=== PATIENT | female | born 1985 | race Caucasian/White ===

== ENCOUNTER 2018-08-06 18:37 | Inpatient (IN) ==
[2018-08-06] MEDS ORDERED: Sodium Chlor 0.9% Inj 500 ML IV.SIG PRN (19:33)
[2018-08-06] MEDS ORDERED: Naloxone Inj 0.4 MG/ML Vial IV.PUSH PRN (19:33)
[2018-08-06] MEDS ORDERED: Sod Chloride 0.9% Inj 1,000 ML IV.CONT PRN (19:33)
[2018-08-06] MEDS ORDERED: fentaNYL Citrate Inj 100 MCG/2 ML Ampul IV.PUSH PRN ×2 (19:33)
[2018-08-06] MEDS ORDERED: Oxytocin 30 Units/500ml Premix 30 UNITS/500 ML BAG IV.SIG ONE (19:33)
[2018-08-06] MEDS ORDERED: Citric Acid/Sodium Citrate Liq 30 ML UDC PO SCH (19:45)
[2018-08-06] MEDS ORDERED: Lidocaine 1% Inj 50 ML Vial ONE (19:48)
[2018-08-06 20:37] LABS: Baso % (Auto) 0.3 % (0.0-2.0); Eos # (Auto) 0.1 th/mm3 (0.0-0.4); Eos % (Auto) 1.6 % (0.0-4.0); Hemoglobin 11.9 gm/dL (11.6-15.3); Lymph # (Auto) 1.1 th/mm3 (1.0-4.8); Lymph % (Auto) 14.9 % (9.0-44.0); Mean Corpuscular Hemoglobin 31.4 pg (27.0-34.0); Mean Corpuscular Volume 89.8 fL (80.0-100.0); Mean Platelet Volume 10.1 fL (7.0-11.0); Mono # (Auto) 0.7 th/mm3 (0.0-0.9); Mono % (Auto) 9.2 % (0.0-8.0); Neut # (Auto) 5.5 th/mm3 (1.8-7.7); Platelet Count 201 th/mm3 (150-450); Red Blood Count 3.79 mil/mm3 (4.00-5.30); Red Cell Distribution Width 14.8 % (11.6-17.2); White Blood Count 7.4 th/mm3 (4.0-11.0)
[2018-08-06 20:48] LABS: Bilirubin,Urine Negative (Negative); Clarity,Urine Hazy (Clear); Color,Urine Yellow (Yellw/Straw); Glucose,Urine (UA) Negative (Negative); Leukocyte Esterase,Urine Negative (Negative); Nitrite,Urine Negative (Negative); Specific Gravity,Urine 1.019 (1.002-1.035); Squamous Epithelial Cell,Urine 3 /hpf (0-5)
[2018-08-07] MEDS ORDERED: Oxytocin 30 Units/500ml Premix 30 UNITS/500 ML BAG IV.SIG PRN (06:11)
[2018-08-07] MEDS ORDERED: Sodium Chloride 0.9% 2 ML Flush PRN IV.FLUSH (06:17)
[2018-08-07] MEDS ORDERED: Sodium Chloride 0.9% 2 ML Flush BID IV.FLUSH SCH (09:00)
--- NOTE | 2018-08-07 10:20 | P.HPOB ---
History of Present Illness Primary Care Physician: NOT REQUIRED Chief Complaint: iol at term History of Present Illness: 33 yo with iup at 40 wk being admitted for iol at term. Good fm, ireg ctx, neg vb or lof. 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 Para: 1 : 3 Total # of Miscarriage(s): 1 - Inpatient Certification I certify that the inpatient services were ordered in accordance with Medicare regulations governing the order. This includes certification that hospital inpatient services are reasonable and necessary and in the case of services not specified as inpatient-only under 42 CFR 419.22(n), that they are appropriately provided as inpatient services in accordance to with the 2-midnight benchmark under 43 CFR 412.3(e) Estimated Total Length of Stay (Days): 2 Plans for Post Hospital Care: Home Review of Systems All other systems reviewed negative except as stated in HPI PMFSH - Travel History Recent Travel in the [place] Within the Last 8 Weeks: No Recent Travel Out of the Country Within the Last 8 Weeks: No Medications and Allergies Active Medications: Active Medications Citric Acid/Sodium Citrate (Sodium Citrate/Citric Acid Liq) 30 ml PO [employer] [employer] [facility] Stop: 08/10/18 19:44 Fentanyl Citrate (Fentanyl Inj) 50 mcg IV.PUSH Q1H PRN PRN Reason: Pain Scale 3 - 5 Fentanyl Citrate (Fentanyl Inj) 100 mcg IV.PUSH Q1H PRN PRN Reason: PAIN SCALE 6 TO 10 Sodium Chloride (Ns Inj) 500 mls @ 1,000 mls/hr IV.SIG UNSCH PRN PRN Reason: SEE LABEL COMMENTS Sodium Chloride (Ns Inj) 1,000 mls @ 100 mls/hr IV.CONT .Q10H PRN PRN Reason: SEE LABEL COMMENTS Lactated Ringer's (Lr 1000 Ml Inj) 1,000 mls @ 3,000 mls/hr IV.SIG UNSCH PRN PRN Reason: compromise or epidural Lactated Ringer's (Lr 1000 Ml Inj) 1,000 mls @ 125 mls/hr IV.CONT .Q8H [facility] Last Admin: 08/06/18 19:30 Dose: 125 mls/hr Oxytocin (Pitocin 30 Units/Ns 500 Ml Premix) 30 units in 500 mls @ 2 mls/hr IV.SIG TITRATE PRN; Protocol PRN Reason: For induction of labor Last Admin: 08/07/18 06:30 Dose: 2 milliunit/min, 2 mls/hr Lidocaine HCl (Xylocaine 1% Inj) 0.1 ml I-DERMAL PRN PRN PRN Reason: For IV start Stop: 08/09/18 19:32 Lidocaine HCl (Xylocaine 1% Inj) 10 ml INFILTRATN PRN PRN PRN Reason: For episiotomy repair Stop: 08/08/18 19:32 Mineral Oil (Muri-Lube Oil) 10 ml TOPICAL PRN PRN PRN Reason: PRN perineal massage Naloxone HCl (Narcan Inj) 0.1 mg IV.PUSH Q2M PRN PRN Reason: for opiate reversal Ondansetron HCl (Zofran Inj) 4 mg IV.PUSH Q6H PRN PRN Reason: NAUSEA OR VOMITING Sodium Chloride (Ns Flush) 2 ml IV.FLUSH BID YESSY Sodium Chloride (Ns Flush) 2 ml IV.FLUSH PRN PRN PRN Reason: FLUSH AFTER USING IV ACCESS Zolpidem Tartrate (Ambien) 10 mg PO HS PRN PRN Reason: SLEEP Last Admin: 08/06/18 21:57 Dose: 10 mg Allergies Allergy/AdvReac Type Severity Reaction Status Date / Time No Known Allergies Allergy Verified 08/06/18 19:16 Home Medications Medication Instructions Recorded Confirmed Type PNV [id number] fumarate-FA 1 tab PO BID 08/06/18 08/06/18 History [] ranitidine HCl [Zantac] 150 mg PO DAILY 08/06/18 08/06/18 History Exam Vital signs: Vital Signs 08/06/18 19:00 08/06/18 19:15 08/06/18 19:30 Temperature 98.0 F Pulse Rate 97 H 79 Respiratory Rate 18 18 Blood Pressure 133/93 H 119/79 08/06/18 21:00 08/06/18 21:30 08/06/18 21:56 Temperature Pulse Rate 89 Respiratory Rate 18 18 18 Blood Pressure 124/79 08/06/18 23:26 08/07/18 00:00 08/07/18 00:30 Temperature Pulse Rate Respiratory Rate 18 18 18 Blood Pressure 08/07/18 00:58 08/07/18 01:30 08/07/18 02:00 Temperature Pulse Rate Respiratory Rate 18 18 18 Blood Pressure 08/07/18 02:28 08/07/18 03:00 08/07/18 03:30 Temperature Pulse Rate Respiratory Rate 18 18 18 Blood Pressure 08/07/18 04:00 08/07/18 04:30 08/07/18 05:00 Temperature Pulse Rate Respiratory Rate 18 18 18 Blood Pressure 08/07/18 05:30 08/07/18 06:00 08/07/18 06:42 Temperature Pulse Rate 85 Respiratory Rate 18 18 18 Blood Pressure 131/82 08/07/18 08:15 08/07/18 08:16 08/07/18 09:02 Temperature 98.5 F Pulse Rate 79 86 Respiratory Rate Blood Pressure 119/78 119/83 08/07/18 10:03 Temperature Pulse Rate 91 H Respiratory Rate Blood Pressure 128/80 Intake & Output 08/06/18 08/07/18 08/07/18 18:59 06:59 18:59 Weight 192 kg - Constitutional no acute distress - Routine HEENT Exam Head: Present: normocephalic Eye: Present: EOMI ENT: Present: mucous membranes moist - Routine Neck Exam Present: supple - Routine Chest/Breast/Axilla Exam Chest wall: Absent: tenderness - Routine Respiratory Exam Absent: accessory muscle use - Routine Cardiovascular Exam Present: RRR. Absent: tachycardia, irregular rhythm - Routine Abdominal Exam Absent: tenderness, distended - Routine Exam Comments: 07/28/50/-2 - Routine Extremities Exam Absent: cyanosis, clubbing Results - Labs CBC & Chem 7: 08/06/18 19:30 Labs: Laboratory Results - last 24 hr 08/06/18 08/06/18 08/06/18 19:15 19:30 19:30 WBC 7.4 RBC 3.79 L Hgb 11.9 Hct 34.0 L MCV 89.8 MCH 31.4 MCHC 35.0 RDW 14.8 Plt Count 201 MPV 10.1 Neut % (Auto) 74.0 H Lymph % (Auto) 14.9 [place] % (Auto) 9.2 H Eos % (Auto) 1.6 Baso % (Auto) 0.3 Neut # (Auto) 5.5 Lymph # (Auto) 1.1 [place] # (Auto) 0.7 Eos # (Auto) 0.1 Baso # (Auto) 0.0 WBC Differential . Differential Comment Auto diff final Urine Color Yellow Urine Clarity Hazy H Urine pH 6.0 Ur Specific [place] 1.019 Urine Protein Negative Urine Glucose (UA) Negative Urine Ketones Negative Urine Occult Blood Negative Urine Nitrate Negative Urine Bilirubin Negative Urine Urobilinogen Less than 2 Ur Leukocyte Esterase Negative Urine WBC 1 Ur Squamous Epith Cells 3 Micro UA Comment Culture not ind Ur Microscopic Review Not Reportable Urine Culture Comments Culture not ind Blood Type B Positive Caprini VTE Risk Assessment Caprini VTE Risk Assessment: No/Low Risk (score <= 1) Caprini Risk Assessment Model: Point Value = 1 Point Value = 2 Point Value = 3 Point Value = 5 Age 41-60 Minor surgery BMI > 25 kg/m2 Swollen legs Varicose veins or History of unexplained or recurrent spontaneous Oral contraceptives or hormone replacement Sepsis (< 1 month) Serious lung disease, including pneumonia (< 1 month) Abnormal pulmonary function Acute myocardial infarction Congestive heart failure (< 1 month) History of inflammatory bowel disease Medical patient at bed rest Age 61-74 Arthroscopic surgery Major open surgery (> 45 min) Laparoscopic surgery (> 45 min) Malignancy Confined to bed (> 72 hours) Immobilizing plaster cast Central venous access Age >= 75 History of VTE Family history of VTE Factor V Leiden Prothrombin [id number] Lupus anticoagulant Anticardiolipin antibodies Elevated serum homocysteine Heparin-induced thrombocytopenia Other congenital or acquired thrombophilia Stroke (< 1 month) Elective arthroplasty Hip, pelvis, or leg fracture Acute spinal cord injury (< 1 month) Prophylaxis Regimen: Total Risk Factor Score Risk Level Prophylaxis Regimen 0-1 Low Early ambulation 2 Moderate Order ONE of the following: *Sequential Compression Device (SCD) *Heparin 5000 units SQ BID 3-4 Higher Order ONE of the following medications: *Heparin 5000 units SQ TID *Enoxaparin/Lovenox 40 mg SQ daily (WT < 150 kg, CrCl > 30 mL/min) *Enoxaparin/Lovenox 30 mg SQ daily (WT < 150 kg, CrCl > 10-29 mL/min) *Enoxaparin/Lovenox 30 mg SQ BID (WT < 150 kg, CrCl > 30 mL/min) AND/OR *Sequential Compression Device (SCD) 5 or more Highest Order ONE of the following medications: *Heparin 5000 units SQ TID (Preferred with Epidurals) *Enoxaparin/Lovenox 40 mg SQ daily (WT < 150 kg, CrCl > 30 mL/min) *Enoxaparin/Lovenox 30 mg SQ daily (WT < 150 kg, CrCl > 10-29 mL/min) *Enoxaparin/Lovenox 30 mg SQ BID (WT < 150 kg, CrCl > 30 mL/min) AND *Sequential Compression Device (SCD) Assessment and Plan - Diagnosis (1) 40 weeks gestation of Code(s): Z3A.40 - 40 weeks gestation of Status: Acute - Plan 33 yo with iup at 40 wk, s/p cervidil overnight w min cervical change. Will try low dose pitocin and arom when possible. GBS neg Male - approx 8 -8.5 lb
[2018-08-07] MEDS ORDERED: fentaNYL 2MCG-Bupiv 0.125% Epi 150 ML EPIDURAL ONE (15:12)
[2018-08-07] MEDS ORDERED: Measles/Mumps/Rubella Vaccine Inj 0.5 ML Vial SQ ONE (16:00)
[2018-08-07] MEDS ORDERED: Diphtheria/Tetanus/Pertussis Vaccine Inj 0.5 ML Syringe IM ONE (16:00)
[2018-08-07] MEDS ORDERED: fentaNYL 2MCG-Bupiv 0.125% Epi 150 ML EPIDURAL PRN (16:05)
[2018-08-07] MEDS ORDERED: fentaNYL Citrate Inj 100 MCG/2 ML Ampul EPIDURAL ONE (16:30)
[2018-08-07] MEDS ORDERED: Lidocaine 1%/Epinephrine 1:200,000 PF Inj 30 ML Vial ONE (20:05)
[2018-08-07] MEDS ORDERED: Lidocaine 2%/Epinephrine 1:200,000 PF Inj 20 ML Vial ONE (20:06)
[2018-08-07] MEDS ORDERED: Bupivacaine PF 0.25% Inj 10 ML Vial ONE (20:06)
[2018-08-07] MEDS ORDERED: Acetaminophen 325 MG Tablet PO PRN (22:05)
[2018-08-07] MEDS ORDERED: Zolpidem Tartrate 5 MG Tablet PO PRN (22:05)
[2018-08-07] MEDS ORDERED: Naloxone Inj 0.4 MG/ML Vial IV.PUSH PRN (22:05)
[2018-08-07] MEDS ORDERED: Oxytocin 30 Units/500ml Premix 30 UNITS/500 ML BAG IV.CONT PRN (22:05)
[2018-08-07] MEDS ORDERED: Benzocaine 20% Top Spray 60 ML Can TOPICAL PRN (22:05)
[2018-08-07] MEDS ORDERED: Bisacodyl 10 MG Supp RECTAL PRN (22:05)
[2018-08-07] MEDS ORDERED: Witch Hazel 50%/Glyderin 12.5% 40 Pad Jar RECTAL PRN (22:05)
--- NOTE | 2018-08-07 22:07 | P.OBDELI ---
Weeks Gestation: 39 Medical Induction of Labor: Yes Artificial Rupture of Membrane: Yes (meconium) Artificial ROM Date: 08/07/18 Anesthesia: Epidural Episiotomy: none Vaginal Delivery: Normal Presentation: Occiput anterior Nuchal Cord: x1 (reduced at perineum) Delayed Cord Clamping (45 sec): Yes Placenta: Spontaneous delivery, Intact Laceration: 1 deg Repair: Chromic running (3-0) Estimated blood loss (mL): 300 : Male Infant Male A Infant Delivery Date: 08/07/18 Delivery Time: 21:45 Weight: 3.487 kg score (1 min): 9 score (5 min): 9
--- NOTE | 2018-08-08 07:19 | P.PNOB ---
Subjective Post day: 1 Interval history: doing well, min bleeding and cramping Objective Vital Signs/I&O: Vital Signs 08/07/18 08:15 08/07/18 08:16 08/07/18 09:02 Temperature 98.5 F Pulse Rate 79 86 Respiratory Rate Blood Pressure 119/78 119/83 08/07/18 10:03 08/07/18 11:00 08/07/18 11:45 Temperature Pulse Rate 91 H 81 81 Respiratory Rate Blood Pressure 128/80 124/80 115/83 08/07/18 13:10 08/07/18 13:12 08/07/18 14:08 Temperature 98.7 F Pulse Rate 76 71 Respiratory Rate Blood Pressure 113/66 114/70 08/07/18 14:22 08/07/18 15:18 08/07/18 15:25 Temperature Pulse Rate 68 89 92 H Respiratory Rate Blood Pressure 139/93 H 123/91 H 133/85 08/07/18 15:28 08/07/18 15:30 08/07/18 15:40 Temperature Pulse Rate 87 90 Respiratory Rate Blood Pressure 125/72 123/70 122/82 08/07/18 15:55 08/07/18 15:57 08/07/18 16:10 Temperature Pulse Rate 93 H 81 89 Respiratory Rate Blood Pressure 141/86 H 123/74 118/72 08/07/18 16:15 08/07/18 16:30 08/07/18 16:45 Temperature Pulse Rate 72 68 63 Respiratory Rate Blood Pressure 116/70 114/75 113/75 08/07/18 17:00 08/07/18 17:15 08/07/18 17:30 Temperature Pulse Rate 80 69 68 Respiratory Rate Blood Pressure 126/81 114/75 112/76 08/07/18 17:37 08/07/18 17:45 08/07/18 18:16 Temperature 97.9 F Pulse Rate 75 73 Respiratory Rate 18 Blood Pressure 119/80 121/82 08/07/18 18:30 08/07/18 18:45 08/07/18 19:00 Temperature Pulse Rate 73 84 84 Respiratory Rate Blood Pressure 117/80 123/85 122/78 08/07/18 19:10 08/07/18 19:15 08/07/18 19:30 Temperature Pulse Rate 84 91 H Respiratory Rate 18 Blood Pressure 116/74 114/68 08/07/18 20:00 08/07/18 20:05 08/07/18 20:10 Temperature Pulse Rate 83 88 Respiratory Rate Blood Pressure 135/100 H 122/82 122/79 08/07/18 20:17 08/07/18 20:33 08/07/18 20:55 Temperature 98.1 F Pulse Rate 85 82 Respiratory Rate 18 18 16 Blood Pressure 119/78 119/81 08/07/18 21:01 08/07/18 21:30 08/07/18 21:53 Temperature Pulse Rate 89 103 H Respiratory Rate Blood Pressure 139/86 133/111 H 136/119 H 08/07/18 22:00 08/07/18 22:03 08/07/18 22:23 Temperature 98.3 F Pulse Rate 91 H 84 Respiratory Rate 18 18 Blood Pressure 130/79 123/83 08/07/18 22:30 08/07/18 22:41 08/07/18 23:00 Temperature Pulse Rate 87 88 Respiratory Rate 18 18 Blood Pressure 140/86 133/81 08/07/18 23:49 08/08/18 04:00 Temperature 98.4 F 98.4 F Pulse Rate 73 82 Respiratory Rate 18 18 Blood Pressure 124/81 128/62 Result Diagrams: 08/06/18 19:30 Objective Remarks: GENERAL: Well-nourished, well-developed patient. CARDIOVASCULAR: Regular rate and rhythm without murmurs, gallops, or rubs. RESPIRATORY: Breath sounds equal bilaterally. No accessory muscle use. ABDOMEN/GI: Abdomen soft, non-tender. Fundus: Firm, non-tender at umbilicus. GENITOURINARY: Light to moderate bleeding. EXTREMITIES: No cyanosis or edema, non-tender, without signs of DVT. Medications and IVs: Active Medications Acetaminophen (Tylenol) 650 mg PO Q4H PRN PRN Reason: PAIN SCALE 1 TO 2 Benzocaine (Americaine 20% [place]) 1 spray TOPICAL Q4H PRN PRN Reason: For Perineum Discomfort Last Admin: 08/08/18 01:18 Dose: 1 spray Bisacodyl (Dulcolax Supp) 10 mg RECTAL DAILY PRN PRN Reason: SEVERE CONSITIPATION Oxytocin (Pitocin 30 Units/Ns 500 Ml Premix) 30 units in 500 mls @ 100 mls/hr IV.CONT UNSCH PRN PRN Reason: Heavy bleeding Ibuprofen (Motrin) 800 mg PO Q8H PRN PRN Reason: For Cramping Last Admin: 08/08/18 01:17 Dose: 800 mg Lactulose (Lactulose Liq) 30 ml PO DAILY PRN PRN Reason: SEVERE CONSITIPATION Naloxone HCl (Narcan Inj) 0.1 mg IV.PUSH Q2M PRN PRN Reason: for opiate reversal Ondansetron HCl (Zofran Odt) 4 mg PO Q6H PRN PRN Reason: NAUSEA OR VOMITING Senna/Docusate Sodium (Madeline-Colace) 1 tab PO BID YESSY Sodium Chloride (Ns Flush) 2 ml IV.FLUSH BID YESSY Sodium Chloride (Ns Flush) 2 ml IV.FLUSH PRN PRN PRN Reason: FLUSH AFTER USING IV ACCESS [place]/Glycerin (Tucks Pads) 1 applicatio RECTAL QID PRN PRN Reason: HEMORRHOIDS Last Admin: 08/08/18 01:15 Dose: 1 applicatio Zolpidem Tartrate (Ambien) 5 mg PO HS PRN PRN Reason: SLEEP Assessment and Plan - Diagnosis (1) 40 weeks gestation of Code(s): Z3A.40 - 40 weeks gestation of Status: Acute - Plan 33 yo s/p ppd 1 continue routine supportive care desires circ, not 12 hours yet Discharge Planning: ppd 2
[2018-08-08] MEDS: Senna/Docusate Sodium 8.6/50 MG Tablet PO SCH ×2 (08:46→21:00)
[2018-08-09] MEDS: Senna/Docusate Sodium 8.6/50 MG Tablet PO SCH (09:00)
--- NOTE | 2018-08-09 10:21 | P.PNOB ---
Subjective Post day: 2 Interval history: doing well, ambulating, voiding, tolerating diet, pain well controlled, lochia light, desires discharge to home Objective Vital Signs/I&O: Vital Signs 08/08/18 20:55 08/09/18 07:55 Temperature 97.9 F 98.6 F Pulse Rate 72 84 Respiratory Rate 16 18 Blood Pressure 126/83 124/89 Result Diagrams: 08/06/18 19:30 Objective Remarks: GENERAL: Well-nourished, well-developed patient. CARDIOVASCULAR: Regular rate and rhythm without murmurs, gallops, or rubs. RESPIRATORY: Breath sounds equal bilaterally. No accessory muscle use. ABDOMEN/GI: Abdomen soft, non-tender. Fundus: Firm, non-tender at umbilicus. GENITOURINARY: Light bleeding. EXTREMITIES: No cyanosis or edema, non-tender, without signs of DVT. Medications and IVs: Active Medications Acetaminophen (Tylenol) 650 mg PO Q4H PRN PRN Reason: PAIN SCALE 1 TO 2 Benzocaine (Americaine 20% [place]) 1 spray TOPICAL Q4H PRN PRN Reason: For Perineum Discomfort Last Admin: 08/08/18 01:18 Dose: 1 spray Bisacodyl (Dulcolax Supp) 10 mg RECTAL DAILY PRN PRN Reason: SEVERE CONSITIPATION Oxytocin (Pitocin 30 Units/Ns 500 Ml Premix) 30 units in 500 mls @ 100 mls/hr IV.CONT UNSCH PRN PRN Reason: Heavy bleeding Ibuprofen (Motrin) 800 mg PO Q8H PRN PRN Reason: For Cramping Last Admin: 08/08/18 01:17 Dose: 800 mg Lactulose (Lactulose Liq) 30 ml PO DAILY PRN PRN Reason: SEVERE CONSITIPATION Naloxone HCl (Narcan Inj) 0.1 mg IV.PUSH Q2M PRN PRN Reason: for opiate reversal Ondansetron HCl (Zofran Odt) 4 mg PO Q6H PRN PRN Reason: NAUSEA OR VOMITING Senna/Docusate Sodium (Madeline-Colace) 1 tab PO BID [facility] Last Admin: 08/09/18 09:00 Dose: Not Given Sodium Chloride (Ns Flush) 2 ml IV.FLUSH BID [facility] Last Admin: 08/09/18 10:11 Dose: Not Given Sodium Chloride (Ns Flush) 2 ml IV.FLUSH PRN PRN PRN Reason: FLUSH AFTER USING IV ACCESS [place]/Glycerin (Tucks Pads) 1 applicatio RECTAL QID PRN PRN Reason: HEMORRHOIDS Last Admin: 08/08/18 01:15 Dose: 1 applicatio Zolpidem Tartrate (Ambien) 5 mg PO HS PRN PRN Reason: SLEEP Assessment and Plan - Diagnosis (1) (spontaneous vaginal delivery) Code(s): O80 - Encounter for full-term uncomplicated delivery Status: Acute (2) 40 weeks gestation of Code(s): Z3A.40 - 40 weeks gestation of Status: Acute - Plan 33 yo s/p routine care, s/p circ this AM, d/c to home today Discharge Planning: ppd 2
== END 2018-08-09 11:18 | disposition home or self-care (01) | DRG 807 ==
LOC: H2E 18:37 → H1EA 08-07 23:30
PROVIDERS: ADMIT Obstetrics & Gynecology; ATTEND Obstetrics & Gynecology
CPT/HCPCS: 59025; 81001; 85025; 86900; 86901; J2590; J3010; J7120